=== PATIENT | male | born 1930 | race Caucasian/White ===

== ENCOUNTER → 2018-05-24 | Outpatient (CLI) | payer MEDICARE, BC ==
--- NOTE | 2018-05-24 07:49 | Diagnostic Imaging Report ---
EXAMINATION: CHEST 2 VIEWS INDICATION: Wheezing COMPARISON: None FINDINGS: TUBES and LINES: None. LUNGS: Low lung volumes. Focal somewhat rounded opacity projects over the medial aspect of the right lower lung. There is patchy opacity in the left mid and bilateral lower lungs. No evidence of pulmonary edema. PLEURA: No pleural effusion or pneumothorax. HEART AND MEDIASTINUM: The cardiomediastinal silhouette is unremarkable. Atherosclerotic calcifications of the aortic arch. BONES AND SOFT TISSUES: Mild age indeterminate loss of vertebral body height in multiple lower thoracic vertebral bodies. UPPER ABDOMEN: No free air under the diaphragm. IMPRESSION: Focal somewhat rounded opacity projecting over the medial right lower lung. An underlying pulmonary nodule is possible and chest CT is recommended for further evaluation. Patchy opacities in the left mid and bilateral lower lung zones, which could reflect atelectasis or pneumonia in the appropriate clinical context. Mild age indeterminate loss of vertebral body height in multiple lower thoracic vertebral bodies. Signed by: Dr. Chelsy Zavala MD on 05/24/2018 7:46 AM
== END ==
LOC: RAD 07:01
PROVIDERS: ATTEND Internal Medicine Cardiovascular Disease
DX: R06.2 Wheezing (principal)
CPT/HCPCS: 71046

== ENCOUNTER → 2018-06-07 | Outpatient (CLI) | payer MEDICARE, BC ==
--- NOTE | 2018-06-07 13:55 | Diagnostic Imaging Report ---
EXAMINATION: CT scan of the chest without contrast. TECHNIQUE: Spiral CT images of the chest were performed from the lung apices to the level of the adrenal glands. No intravenous contrast was administered per referring physician request. Coronal and sagittal reformatted images were obtained. COMPARISON: Chest radiograph 05/24/2018 CLINICAL HISTORY:Right infrahilar medial right lower lung opacity DISCUSSION: ABSENCE OF INTRAVENOUS CONTRAST DECREASES SENSITIVITY FOR DETECTION OF FOCAL LESIONS AND VASCULAR PATHOLOGY. LINES/TUBES: None. LUNGS AND AIRWAYS: No pulmonary nodule is identified to correspond to the right infrahilar opacity on the comparison chest radiograph. Findings likely reflect summation of vascular structures. Peripheral predominance juxtapleural reticular and groundglass opacities, more prominent in the lung bases with multiple air-filled cysts. No honeycombing. No consolidation. Mild bilateral lower lobe predominant bronchiectasis, likely post infectious. No gross mass lesion. The trachea, mainstem bronchi, and central lobar and segmental bronchi are patent. PLEURA: No pneumothorax or pleural effusions. HEART AND MEDIASTINUM: Visualized portions of the thyroid gland are unremarkable. No ectasia or aneurysmal dilatation of the thoracic aorta. Pulmonary outflow tract is of normal caliber. Atherosclerotic calcification of the aortic arch, great vessel origins, and [place] coronary arteries. No pericardial effusion. LYMPH NODES: There is no mediastinal, hilar or axillary lymphadenopathy. ABDOMEN: Visualized portions of the liver, gallbladder, spleen, pancreas, adrenals, and kidneys are unremarkable. BONES AND SOFT TISSUES: No osseous destructive lesions. Multilevel degenerative disc changes of the partially visualized lower cervical and thoracic spine. No focal soft tissue abnormalities. IMPRESSION: No pulmonary nodule or mass lesion is identified corresponding to the abnormality described on the chest radiograph 05/24/2018. Presumably this finding represented summation of right lower lobe vascular and osseous structures. Mild diffuse pulmonary fibrotic changes are likely age-related. Other considerations include early UIP or fibrotic variant NSIP. Atherosclerotic vascular disease. Signed by: Dr. Evangelist Yin M.D. on 06/07/2018 1:51 PM
== END ==
LOC: CT 11:56
PROVIDERS: ATTEND Internal Medicine Cardiovascular Disease
DX: R06.2 Wheezing (principal); I25.119 Atherosclerotic heart disease of native coronary artery with unspecified angina pectoris
CPT/HCPCS: 71250